=== PATIENT | male | born 1980 | race Caucasian/White ===

== ENCOUNTER 2016-05-29 16:10 | Observation (INO) | payer OTHER ==
[~2016-05-29] VITALS: Ht 182.9 cm; Wt 98.0 kg
[~2016-05-29 16:10] MED LIST: XANAX0.5 MG PO
[2016-05-29 17:18] LABS: HEMATOCRIT 49.6 % (38.0-50.0); MCH 30.3 PG (29.0-34.0); MCHC 34.5 G/DL (30.0-36.0); MCV 87.9 FL (86-99); MEAN PLAT.VOLUME 8.5 uM^3 (9.0-12.4); PLATELET COUNT 250 K/uL (156-360); RBC DIS.WIDTH-CV 13.1 % (11.8-14.6); RBC DIS.WIDTH-SD 42.1 % (39-53); RED BLOOD COUNT 5.64 M/uL (4.00-5.50); WHITE BLOOD COUNT 14.3 K/uL (4.1-10.2)
[2016-05-29 17:30] LABS: CHLORIDE 103 mEq/L (99-109); POTASSIUM 4.9 mEq/L (3.7-5.4); SODIUM 138 mEq/L (136-147)
[2016-05-29 17:32] LABS: GLUCOSE 97 mg/dL (70-99)
[2016-05-29 17:33] LABS: ANION GAP 10 MEQ/L (2-14)
[2016-05-29 17:36] LABS: GFR ESTIMATE (CALCULATED) > 59 mL/min/
[2016-05-29 17:37] LABS: UREA NITROGEN (BUN) 9 mg/dL (9-23)
[2016-05-29 17:42] LABS: TROP-I INTERPRETATION NEGATIVE; TROPONIN-I < 0.01 ng/mL (0.0-0.30)
[2016-05-29] MEDS ORDERED: XANAX0.5 MG PO (18:33)
[2016-05-29] MEDS ORDERED: MINIPRESS1 MG PO (18:34)
[2016-05-29] MEDS ORDERED: PRAZOSIN HCL5 MG PO (18:34)
[2016-05-29] MEDS ORDERED: LIBRIUM10 MG PO (18:35)
[2016-05-29] MEDS ORDERED: LAMOTRIGINE200 MG PO (18:35)
[2016-05-29] MEDS ORDERED: LISINOPRIL-HCT1 EACH PO (18:36)
[2016-05-29] MEDS ORDERED: GABAPENTIN300 MG PO (18:36)
[2016-05-29] MEDS ORDERED: ASPIRIN325 MG PO (18:37)
[2016-05-29 21:42] VITALS: BP 92/65
[2016-05-29 21:54] VITALS: BP 110/72
[2016-05-30 00:14] VITALS: BP 99/54
[2016-05-30 00:41] LABS: TROP-I INTERPRETATION NEGATIVE; TROPONIN-I < 0.01 ng/mL (0.0-0.30)
[2016-05-30 03:25] VITALS: BP 100/56
[2016-05-30 07:08] LABS: HDL CHOLESTEROL 44 MG/DL (Desirable>=40); LDL CHOLESTEROL 129 mg/dL (Desirable<100); NON-HDL CHOLESTEROL 186 mg/dL (Desirable<160); TOTAL CHOLESTEROL 230 mg/dL (Desirable<200); TRIGLYCERIDES 285 MG/DL (Normal: <150)
[2016-05-30 07:18] LABS: TROP-I INTERPRETATION NEGATIVE; TROPONIN-I < 0.01 ng/mL (0.0-0.30)
[2016-05-30 08:21] VITALS: BP 118/75
[2016-05-30 12:41] VITALS: BP 128/85
== END 2016-05-30 14:44 | disposition home or self-care (01) ==
LOC: EME 16:10 → EDOF 19:32 → 5WEST 21:11
PROVIDERS: Emergency Medicine; Physician Assistant Medical
DX: R07.89 Other chest pain (principal); R94.31 Abnormal electrocardiogram [ECG] [EKG]; I10 Essential (primary) hypertension; F43.10 Post-traumatic stress disorder, unspecified; F41.1 Generalized anxiety disorder; E78.1 Pure hyperglyceridemia; F17.210 Nicotine dependence, cigarettes, uncomplicated; Z79.82 Long term (current) use of aspirin; Z82.49 Family history of ischemic heart disease and other diseases of the circulatory system; Z88.8 Allergy status to other drugs, medicaments and biological substances
CPT/HCPCS: 71020; 80048; 80061; 84443; 84484; 85027; 93005; 99281; 99285; G0378